=== PATIENT | female | born 1995 | race Caucasian/White ===

== ENCOUNTER 2017-04-26 17:33 | Observation (INO) | payer OTHER | END 2017-04-27 12:22 | disposition short-term general hospital (02) | LOC: LDROP 17:33 → IP 23:19 | PROVIDERS: ADMIT Family Medicine | DX: O60.03 Preterm labor without delivery, third trimester (principal); Z3A.33 33 weeks gestation of pregnancy | CPT/HCPCS: G0378; G0379; J3105 ==